=== PATIENT | male | born 1995 | race Caucasian/White ===

== ENCOUNTER 2018-02-10 21:20 | Emergency (ER) | payer OTHER | END 2018-02-10 23:07 | disposition home or self-care (01) | LOC: M ED 21:20 | DX: B35.6 Tinea cruris (principal) | CPT/HCPCS: 99283 ==

== ENCOUNTER 2020-01-26 23:42 | Emergency (ER) | payer OTHER ==
[~2020-01-26] VITALS: Ht 177.8 cm; Wt 81.8 kg
[~2020-01-26 23:42] MED LIST: CLOT1CRE2 TOP; DIFL150T PO
[2020-01-27 02:00] VITALS: BP 126/68
== END 2020-01-27 02:02 | disposition home or self-care (01) ==
LOC: M ED 23:42
DX: T68.XXXA Hypothermia, initial encounter (principal); X31.XXXA Exposure to excessive natural cold, initial encounter; Y92.89 Other specified places as the place of occurrence of the external cause; Y93.9 Activity, unspecified; Y99.1 Military activity; F17.200 Nicotine dependence, unspecified, uncomplicated